=== PATIENT | female | born 1955 | race Caucasian/White ===

== ENCOUNTER → 2022-07-28 10:27 | Outpatient (BNVA) | payer MEDICARE, SELFPAY | PROVIDERS: PCP Internal Medicine; Visit Provider Nurse Practitioner Family ==

== ENCOUNTER 2022-07-28 10:54 | Observation (INO) | payer MEDICARE, OTHER, SELFPAY ==
[2022-07-28] VITALS (10 sets, daily range): BP systolic 105–172; BP diastolic 49–98; PULSE 61–105; RESP 16–22; TEMP 36.6–36.9; O2SAT 92–96; BMI 19.4
--- NOTE | ~2022-07-28 | XR_ITS ---
EXAMINATION: XR CHEST CLINICAL INFORMATION: Hypoxia. COMPARISON: None available. TECHNIQUE: 2 views of the chest were obtained. FINDINGS: Mild streaky opacities in the lower lungs. No significant pleural effusion or pneumothorax. Normal appearance of the cardiomediastinal silhouette. No acute osseous abnormalities. Thoracic spondylosis. XR/XR chest 2V IMPRESSION: Mild streaky opacities in the lower lungs favoring to represent subsegmental atelectasis.
--- NOTE | ~2022-07-28 | CT_ITS ---
EXAMINATION: CTA OF THE HEAD AND NECK CLINICAL INFORMATION: Question prior aneurysm or vascular malformation causing nosebleeds. COMPARISON: None available. TECHNIQUE: Test bolus sequences followed by intravenous administration 70 mL of Omnipaque 350. Helical imaging was performed in the axial plane from the mediastinum to the skull vertex. Delayed postcontrast imaging of the head was also performed. The data was processed at the communications technologist's workstation for generation of MIP sequences. Three-dimensional volume rendered reformatted images were also generated at an offline 3-D workstation. Stenoses are assessed in accordance with NASCET criteria unless otherwise indicated. Limited study with motion artifacts. This CT examination was performed using dose optimization techniques as appropriate, variously including the following: *Automated exposure control *Adjustment of mA and/or kV according to patient size (this includes techniques or standardized protocols for targeted exams where dose is matched to indication/reason for exam; i.e. extremities or head) *Use of iterative reconstruction technique DLP: 3115 mGy-cm FINDINGS: CT HEAD: There is no evidence of acute intracranial hemorrhage or territorial infarction. There is no loss of myers to white matter differentiation. No abnormal mass effect or midline shift is seen. No extra-axial fluid collections are identified. Moderate diffuse parenchymal volume loss and extensive chronic white matter microangiopathic changes are noted. There is ex vacuo prominence of the ventricles as well, slightly dilated to a greater degree compared to the sulcal spaces. However, the temporal horns of the lateral ventricles are not disproportionately dilated. No abnormal parenchymal or leptomeningeal enhancement is visible. The osseous structures and soft tissues are normal. The mastoid air cells are well aerated. There is intermediate attenuation soft tissue dependent portion of the left maxillary sinus which may reflect mucosal thickening and/or blood products, given patient history of epistaxis. CTA NECK: The imaged aortic arch and origins of the great vessels are patent with mild atherosclerotic wall calcifications. There are mild atherosclerotic wall calcifications at the right carotid bifurcation and origin of the right internal carotid artery with minimal luminal narrowing. The remainder of the right cervical ICA is normal in caliber. There is mild atheromatous disease along the porras of the left common carotid artery, though without significant luminal narrowing. At the left carotid bifurcation, atherosclerotic disease results in very mild narrowing of the distal common carotid artery; however, the left internal carotid artery origin is patent. There are mild wall calcifications in the proximal cervical left ICA without stenosis. The vertebral arteries opacify normally and are of normal caliber. Although limited for evaluation with motion artifacts, no obvious aneurysm is seen arising from the internal maxillary artery branch of the left external carotid artery. The remainder of the ECA vasculature bilaterally is grossly normal; no vascular malformation is visible. There is an indeterminate homogeneous, mildly hyperdense soft tissue abnormality in the right gingivobuccal sulcus measuring 2 x 1.3 x 1 cm in size. It is indeterminate as to whether higher attenuation of the soft tissue abnormality is due to enhancement. There is a significant reversal of the normal cervical lordosis with multilevel degenerative disc disease and facet arthropathy. Mild anterolisthesis noted at the C4-C5 level. The imaged portions of the lungs are clear with extensive emphysematous changes. There is a 0.3 cm nodule laterally in the left upper lobe. Linear scarring also visible anteriorly in the upper lobes bilaterally. CTA HEAD: There is a 1 x 0.7 cm lobulated aneurysm arising from the right PICA branch. The intradural vertebral arteries and basilar artery are normal in caliber. The posterior cerebral arteries are widely patent. The internal carotid arteries are of normal caliber. The ANISHA and MCA vascular complexes bilaterally are normal. The venous sinuses opacify normally. 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 Recommend follow-up neurosurgical versus neurointerventional radiology consultation to guide further management. No acute intracranial hemorrhage. Moderate diffuse parenchymal volume loss and extensive chronic white matter microangiopathy. No acute territorial infarction. Indeterminate 2 x 1.3 cm homogeneously hyperdense soft tissue abnormality in the right gingivobuccal sulcus which is indeterminate. Recommend correlation with direct visual inspection to exclude a mucosal lesion. Scattered mild atherosclerotic disease in the cervical and intracranial vasculature without significant stenosis or vessel occlusion. No obvious vascular malformation or aneurysm of the left external carotid artery, though assessment is limited due to patient motion artifacts. Intermediate soft tissue attenuation in the dependent portion of the left maxillary sinus which represent a combination of mucosal thickening and blood products, given patient's reported history of left-sided epistaxis. Recommend ENT follow-up evaluation to guide further management. Severe emphysema. Incidental 0.3 cm nodule in the left upper lobe. Per the 2017 revised Fleischner Society guidelines, no routine follow-up is necessarily required in low-risk patients, and consideration of 12 month follow-up CT is recommended for patients at high-risk for the development of pulmonary neoplasm. Imaging findings reported to Dr. Khan at 2:40 PM on 07/28/2022.
--- NOTE | 2022-07-28 11:01 | ED.GENADULT ---
HPI - General Adult General Chief complaint: General Medical Stated complaint: Low O2 Time Seen by Provider: 07/28/22 11:47 Source: patient and family Mode of arrival: ambulatory Limitations: no limitations History of Present Illness HPI narrative: 67 yo female hx of COPD still smokes 2 packs a day but not on home O2, HTN, prior intracererbral artery aneurysm that her and states started with brisk nose bleed was seen at [facility] on 07/22 for nose bleed but no bleeding in department at that time hemoglobin was 14, CXR showed RML pneumonia - looks like she left AMA due to hypoxia in the 80s not on home O2 and the patient was sent home on zpak and prednisone. she comes back as she notes she is coughing and has blood with the cough but then it causes a brisk bleed out of the L nares. She is not on thinners or aspirin. she states [facility] did nothing for me she states her prior aneurysm started this way last time. MD complaint: coughing blood and nose bleed Onset (ago): week(s) (1) Radiation: non-radiation Severity: moderate Relieving factors: none Exacerbating factors: other (coughing) Associated symptoms: cough and shortness of breath Treatments prior to arrival: other (steroids and antibiotics ) Related Data Allergies Allergy/AdvReac Type Severity Reaction Status Date / Time No Known Allergies Allergy Verified 07/28/22 11:05 Review of Systems Review of Systems: Constitutional : No Fever, No Chills, No Fatigue ENT/Mouth : No sore throat, No Rhinorrhea, pos nose bleed Eyes: No Eye Pain, No Swelling, No Redness Cardiovascular : No Chest Pain, pos SOB, No Dyspnea on Exertion Respiratory : pos Cough, No Sputum Gastrointestinal : No Nausea, No Vomiting, No Diarrhea, No abdominal Pain Genitourinary : No Dysuria, No Urinary Frequency, No Hematuria, Musculoskeletal : No joint pain, No Myalgias, No Joint Swelling Skin : No Skin Lesions, No rash Neuro : No Weakness, No Numbness, No Dizziness, no Headache Psych : pos Anxiety/Panic, No Depression Heme/Lymph: No Bruising, No Bleeding,No Lymphadenopathy Endocrine : No Polyuria, No Polydipsia All other systems reviewed and are negative PMFSH Past Medical History Attestation statement: The following information was validated with the patient. Medical History Aneurysm COPD (chronic obstructive pulmonary disease) HTN (hypertension) Social History Social History (Updated 07/28/22 @ 12:29 by Tabby Khan DO) Patient Tobacco Use Status: Current everyday Tobacco user Advance Directives: No Advance Directives Information Provided: Yes Physical Exam ED Vital Signs: Vital Signs - 24 hr 07/28/22 10:56 07/28/22 12:27 07/28/22 15:10 Temperature 97.8 F 98.2 F Pulse Rate 94 105 H 80 Respiratory Rate 20 20 16 Blood Pressure 158/54 H 105/55 L Pulse Oximetry 93 96 Oxygen Delivery Method Nasal Cannula Nasal Cannula Oxygen Flow Rate 2 07/28/22 16:09 Temperature 98.4 F Pulse Rate 100 Respiratory Rate 22 H Blood Pressure 156/98 H Pulse Oximetry 92 Oxygen Delivery Method Nasal Cannula Oxygen Flow Rate 2 BMI result Body Mass Index 19.4 Appearance: Alert. Oriented X3. No acute distress. Eyes: Pupils equal, round and reactive to light. ENT: Pharynx normal. L nares dried blood no active bleeding with cough no brisk bleeding happens Neck: Normal inspection. Neck supple. CVS: Normal heart rate and rhythm. Pulses normal. Respiratory: No respiratory distress. Breath sounds diminished Abdomen: Soft and non-tender. Skin: Skin warm and dry. pale skin color. Normal skin turgor. Extremities: No lower extremity edema. Neuro: Oriented X 3. No motor deficit. No sensory deficit. Course Course Course Narrative: RME - 67 yo female with history of COPD (not on O2), active smoker, hx ovarian cancer, hx brain aneurysm, HTN who presents to the ER from the Pulmonary office for evaluation of low oxygen levels. They were being seen there for possibility of home O2 initiation. She recently has had several nose bleeds, seen at [facility]x. Had low O2 levels there too and refused admission. Not on anticoagulation. Last nose bleed 15 mins ago and stopped with direct pressure. Placed on 2L (via mouth) and sent to the ER. SpO2 93%. No epistaxis at this time. Plan: CXR, labs, coags. will need to get [facility] records if able no active bleeding on CTA, incidental aneurysm, no persistent bleeding no new mass on CXR, H/H has trended down will need observation likely bleeding at home. denies GIB symptoms. type and screen ordered. no active bleeding at all I do not think she needs to be packed but CBC dropped again offered admit for trending. she agrees. at this time will transfuse one unit and reassess if she bleeds will pack. signed out to Dr. Verdugo. 17:10: patient has been in the emergency room for almost 6 hours, patient has not had any episodes of epistaxis. - Patient agreeable to blood transfusion - patient breathing comfortably, saturating 92% on 2 L of nasal cannula. Patient agreeable to stay for observation. - Patient has been discussed with Dr. Stone Medications Administered Discontinued Medications Generic Name Dose Route Start Last Admin Trade Name Freq PRN Reason Stop Dose Admin Iohexol 70 ml 07/28/22 13:58 07/28/22 13:58 Iohexol 350 Mg/Ml 75 Ml Infus..Btl IV 07/28/22 13:59 70 ml ONCE ONE Administration Oxymetazoline HCl 2 spray 07/28/22 12:01 07/28/22 12:16 Oxymetazoline Hcl 0.05 % Nasal 15 Ml [place] NOSTRIL-B 07/28/22 12:02 2 spray ONCE ONE Administration Tranexamic Acid 500 mg 07/28/22 12:01 07/28/22 12:24 Tranexamic Acid 1,000 Mg/10 Ml Vial INHALE 07/28/22 12:02 500 mg ONCE ONE Administration Medical Decision Making Medical Decision Making MDM Narrative: 67 yo female hx of COPD still smokes 2 packs a day but not on home O2, HTN, prior intracererbral artery aneurysm that her and states started with brisk nose bleed was seen at [facility] on 07/22 for nose bleed - left AMA with pneumonia, hypoxia sent home on steroids and antibiotics she comes back with nose bleeds that has stopped and coughing blood - I have ordered repeat labs, CXR for pneumonia - has no CP to suggest PE ddimer was negative at [facility] per records. I have ordered CTA for possible AVM. Knows she will need packing for bleed if it recurrs - not on thinners. slow trend down in H/H no known CAD will hold off transfusion Differential Diagnosis Differential Diagnoses: The differential diagnosis associated with the presentation includes mass, pneumonia, AVM, posterior nose bleed, anemia, bronchitis Admission/Observation Consideration of admission/observation: Escalation of care including admission/observation considered Consult Healthcare Provider Management of the patient was discussed with: Hospitalist Lab Data MDM Lab Attestation statement: I reviewed the patient's lab results. 07/28/22 11:11 07/28/22 11:11 Labs: Lab Results 07/28/22 07/28/22 07/28/22 Range/Units 11:11 11:11 11:11 WBC 7.2 (4.8-10.8) X10*3/uL RBC 2.89 L (4.20-5.50) X10*6/uL Hgb 9.2 L (12.0-16.0) g/dl Hct 29.1 L (37.0-47.0) % MCV 100.7 H (80.0-98.0) fL MCH 31.8 (27.0-33.0) pg MCHC 31.6 (31.0-35.0) g/dl RDW 14.8 (11.0-16.0) % Plt Count 208 (160-400) X10*3/uL MPV 12.5 H (9.4-12.3) fL Immature Gran % (Auto) 0.1 (0.0-0.4) % Neut % (Auto) 81.7 H (45-73) % Lymph % (Auto) 9.1 L (20-40) % Campbell % (Auto) 7.9 (2-11) % Eos % (Auto) 0.8 (0-4) % Baso % (Auto) 0.4 (0-2) % Lymph # (Auto) 0.7 L (1.2-4.9) X10*3/uL Campbell # (Auto) 0.6 (0.1-1.2) X10*3/uL Eos # (Auto) 0.1 (0.0-0.4) X10*3/uL Baso # (Auto) 0.0 (0.0-0.2) X10*3/uL Abs Immat Gran (auto) 0.01 (0.00-0.03) X10*3/uL Absolute Neuts (auto) 5.9 (2.0-8.3) x10*3/uL Absolute Nucleated RBC 0.000 (0.0-0.012) X10*3/uL Nucleated RBC % (auto) 0.0 (0.0-0.2) /100WBC PT 12.8 (10.0-13.1) SEC INR 1.1 (0.9-1.1) APTT 30.2 (26.0-36.4) SEC Sodium 144 (135-145) mmol/L Potassium 4.2 (3.3-5.1) mmol/L Chloride 108 (96-108) mmol/L Carbon Dioxide 31 H (22-29) mmol/L Anion Gap 9 L (12-20) BUN 13 (9-16) mg/dL Creatinine 0.76 (0.5-1.4) mg/dL Estim Creat Clear Calc 56.5 Estimated GFR > 60 Random Glucose 159 H (60-115) mg/dL Calcium 8.6 (8.4-10.2) mg/dL Magnesium 2.1 (1.6-2.6) mg/dL Total Bilirubin 0.4 (0.0-1.0) mg/dL Direct Bilirubin 0.1 (0.0-0.5) mg/dL AST 10 (5-31) U/L ALT 7 (0-31) U/L Alkaline Phosphatase 85 (39-117) U/L B-Natriuretic Peptide (<100) pg/mL Total Protein 6.1 L (6.5-8.0) g/dL Albumin 3.8 (3.5-5.0) g/dL Blood Type Antibody Screen Crossmatch 07/28/22 07/28/22 07/28/22 Range/Units 11:11 14:39 15:35 WBC 6.6 (4.8-10.8) X10*3/uL RBC 2.70 L (4.20-5.50) X10*6/uL Hgb 8.5 L (12.0-16.0) g/dl Hct 27.2 L (37.0-47.0) % MCV 100.7 H (80.0-98.0) fL MCH 31.5 (27.0-33.0) pg MCHC 31.3 (31.0-35.0) g/dl RDW 15.0 (11.0-16.0) % Plt Count 212 (160-400) X10*3/uL MPV 12.8 H (9.4-12.3) fL Immature Gran % (Auto) (0.0-0.4) % Neut % (Auto) (45-73) % Lymph % (Auto) (20-40) % Campbell % (Auto) (2-11) % Eos % (Auto) (0-4) % Baso % (Auto) (0-2) % Lymph # (Auto) (1.2-4.9) X10*3/uL Campbell # (Auto) (0.1-1.2) X10*3/uL Eos # (Auto) (0.0-0.4) X10*3/uL Baso # (Auto) (0.0-0.2) X10*3/uL Abs Immat Gran (auto) (0.00-0.03) X10*3/uL Absolute Neuts (auto) (2.0-8.3) x10*3/uL Absolute Nucleated RBC 0.000 (0.0-0.012) X10*3/uL Nucleated RBC % (auto) 0.0 (0.0-0.2) /100WBC PT (10.0-13.1) SEC INR (0.9-1.1) APTT (26.0-36.4) SEC Sodium (135-145) mmol/L Potassium (3.3-5.1) mmol/L Chloride (96-108) mmol/L Carbon Dioxide (22-29) mmol/L Anion Gap (12-20) BUN (9-16) mg/dL Creatinine (0.5-1.4) mg/dL Estim Creat Clear Calc Estimated GFR Random Glucose (60-115) mg/dL Calcium (8.4-10.2) mg/dL Magnesium (1.6-2.6) mg/dL Total Bilirubin (0.0-1.0) mg/dL Direct Bilirubin (0.0-0.5) mg/dL AST (5-31) U/L ALT (0-31) U/L Alkaline Phosphatase (39-117) U/L B-Natriuretic Peptide 22 (<100) pg/mL Total Protein (6.5-8.0) g/dL Albumin (3.5-5.0) g/dL Blood Type O Positive Antibody Screen NEGATIVE Crossmatch See Detail Independent Interpretation I performed an independent interpretation of an: EKG and Plain X-Ray Interpretation: Rate: 84 Rhythm: NSR Clayton: normal LVH Normal P waves. Normal BETY. Normal QRS complex. ST T wave : artifact but no CLAY inverted aVL qTC: normal prior studies: no acute ischemia The study has been interpreted contemporaneously by me. . Critical Care Time Critical Care Time Critical Care Time: Yes Total Critical Care Time: 60 Attestation: I have personally provided critical care time. Time includes review of lab data, radiology results, discussion with consultants, and monitoring for potential decompensation. Intervention performed as documented. Discharge Plan Discharge Clinical Impression: Acute blood loss anemia, Epistaxis Patient Disposition: Admitted As Inpatient Additional Instructions: you have an incidental finding of an aneurysm on your R PICA 1cm this needs to be looked at by a neurosurgeon please call your provider at [facility].
[2022-07-28 11:14] LABS: MANUAL DIFF FLAG NO
[2022-07-28 11:17] LABS: Basophils Percent Auto 0.4 % (0-2); Eosinophils Absolute Auto 0.1 X10*3/uL (0.0-0.4); Eosinophils Percent Auto 0.8 % (0-4); Hematocrit 29.1 % (37.0-47.0); Hemoglobin 9.2 g/dl (12.0-16.0); Imm Gran Abs Auto 0.01 X10*3/uL (0.00-0.03); Imm Gran Pct Auto 0.1 % (0.0-0.4); Lymphocytes Absolute Auto 0.7 X10*3/uL (1.2-4.9); Lymphocytes Percent Auto 9.1 % (20-40); Mean Corpuscular HGB Conc 31.6 g/dl (31.0-35.0); Mean Corpuscular Hemoglobin 31.8 pg (27.0-33.0); Mean Corpuscular Volume 100.7 fL (80.0-98.0); Mean Platelet Volume 12.5 fL (9.4-12.3); Monocytes Absolute Auto 0.6 X10*3/uL (0.1-1.2); Monocytes Percent Auto 7.9 % (2-11); Neutrophils Absolute Auto 5.9 x10*3/uL (2.0-8.3); Neutrophils Percent Auto 81.7 % (45-73); Platelet Count 208 X10*3/uL (160-400); Red Blood Count 2.89 X10*6/uL (4.20-5.50); Red Cell Distribution Width 14.8 % (11.0-16.0); White Blood Count 7.2 X10*3/uL (4.8-10.8)
[2022-07-28 11:23] LABS: INTERNATIONAL NORM RATIO 1.1 (0.9-1.1); Prothrombin Time 12.8 SEC (10.0-13.1)
[2022-07-28 11:26] LABS: Partial Thromboplastin Time 30.2 SEC (26.0-36.4)
[2022-07-28 11:31] LABS: Alanine Aminotransferase 7 U/L (0-31); Albumin Level 3.8 g/dL (3.5-5.0); Alkaline Phosphatase 85 U/L (39-117); Anion Gap 9 (12-20); Aspartate Amino Transferase 10 U/L (5-31); Bilirubin Direct 0.1 mg/dL (0.0-0.5); Bilirubin Total 0.4 mg/dL (0.0-1.0); Blood Urea Nitrogen 13 mg/dL (9-16); Calcium 8.6 mg/dL (8.4-10.2); Carbon Dioxide 31 mmol/L (22-29); Chloride 108 mmol/L (96-108); Creatinine Clr Calc Pharmacy 56.5; Estimated Glomerular Filt Rate > 60; Glucose Random 159 mg/dL (60-115); Magnesium 2.1 mg/dL (1.6-2.6); Potassium 4.2 mmol/L (3.3-5.1); Sodium 144 mmol/L (135-145); Total Protein 6.1 g/dL (6.5-8.0)
--- NOTE | 2022-07-28 12:01 | ECG_ITS ---
Test Reason : sob Blood Pressure : / mmHG Vent. Rate : 084 BPM Atrial Rate : 084 BPM P-R Int : 120 ms QRS Dur : 100 ms QT Int : 396 ms P-R-T Axes : 080 035 089 degrees QTc Int : 467 ms Poor data quality Normal sinus rhythm Minimal voltage criteria for LVH, may be normal variant ( Kevin product ) Abnormal ECG No previous ECGs available Referred By: Tabby Khan Electronically Signed By:Nito Terrazas
[2022-07-28] MEDS: Oxymetazoline HCl 0.05 % Nasal 15 ML SPRAY 2 SPRAY NOSTRIL-B (12:16)
[2022-07-28 12:21] LABS: B Type Natriuretic Peptide 22 pg/mL (<100)
[2022-07-28] MEDS: Tranexamic Acid 1,000 MG/10 ML VIAL 500 MG INHALE (12:24)
[2022-07-28] MEDS: iohexoL 350 MG/ML 75 ML INFUS..BTL 70 ML IV (13:58)
[2022-07-28 15:50] LABS: Hematocrit 27.2 % (37.0-47.0); Hemoglobin 8.5 g/dl (12.0-16.0); Mean Corpuscular HGB Conc 31.3 g/dl (31.0-35.0); Mean Corpuscular Hemoglobin 31.5 pg (27.0-33.0); Mean Corpuscular Volume 100.7 fL (80.0-98.0); Mean Platelet Volume 12.8 fL (9.4-12.3); Platelet Count 212 X10*3/uL (160-400); White Blood Count 6.6 X10*3/uL (4.8-10.8)
--- NOTE | 2022-07-28 18:10 | PM.IMHP ---
History of Present Illness Date of Service: 07/28/22 Chief Complaint: Nose bleed 67-year-old female with history of COPD recently treated for exacerbation with steroid, doxy and Augmentin, hypertension who was seen in Pulmonary Clinic and sent to ED because low O2 sat but while in the ED reported she reported that she has been have frequent nosebleed last episode was over 6 hours ago and also reportedly she has been seen at [facility] 3 times for this. Her hemoglobin is 8.5, it was 12.3 on July 25 at [facility]. She is presently not experiencing any difficulty breathing Review of Systems Review of Systems: no sob nose bleed--no actively, all other system areviewed and negative Yes all other systems are reviewed and are negative [facility] Medical History Aneurysm COPD (chronic obstructive pulmonary disease) HTN (hypertension) Social History Patient Tobacco Use Status: Current everyday Tobacco user Advance Directives: No Advance Directives Information Provided: Yes Nutrition Risks: Poor intake 0-25% >4 days service: No Current occupational status: [employer] Allergies Allergy/AdvReac Type Severity Reaction Status Date / Time No Known Allergies Allergy Verified 07/28/22 11:05 Active Medications: Current Medications Pharmacy Consult (Consult Rx Perform Med Rec) 1 each MISCELLANE ONCE PRN PRN Reason: Consult order Home Medications Medication Instructions Recorded Confirmed Last Taken Type albuterol sulfate 90 mcg/actuation 2 puff inhalation Q4H PRN 07/28/22 07/28/22 Unknown History aerosol inhaler Shortness Of Breath Or Wheezing amlodipine 10 mg tablet 10 mg PO DAILY 07/28/22 07/28/22 07/27/22 10:00 History amoxicillin 875 mg-potassium 1 tab PO Q12H 07/28/22 07/28/22 07/27/22 History clavulanate 125 mg tablet azithromycin 250 mg tablet 250 mg PO DAILY 07/28/22 07/28/22 07/27/22 10:00 History carvedilol 12.5 mg tablet 12.5 mg PO BID 07/28/22 07/28/22 07/27/22 10:00 History famotidine 20 mg tablet 20 mg PO DAILY 0607/28/22 07/27/22 10:00 History oxybutynin chloride 10 mg 10 mg PO DAILY 07/28/22 07/28/22 07/27/22 10:00 History tablet,extended release 24 hr sertraline 100 mg tablet 100 mg PO DAILY 07/28/22 07/28/22 07/27/22 10:00 History valsartan 40 mg tablet 40 mg PO DAILY 07/28/22 07/28/22 07/27/22 10:00 History Physical Exam Vital Signs and Narrative: Vital Signs: Last Vital Signs Temp 98.2 F 07/28/22 17:37 Pulse 69 07/28/22 17:37 Resp 18 07/28/22 17:37 BP 172/67 H 07/28/22 17:37 Pulse Ox 92 07/28/22 16:09 O2 Del Method Nasal Cannula 07/28/22 16:09 O2 Flow Rate 2 07/28/22 16:09 Oxygen Flow Rate 2 07/28/22 10:56 BMI result Body Mass Index 19.4 Const: Other: General: AO X 3, no acute distress HEENT: no blood in nose Resp: CTA bilateral CVS: S1,S2,RRR GI: +BS, NT, no distention Skin: No rash Neuro: motor grossly intact Psych: appropriate affect Results Labs 07/28/22 15:35 07/28/22 11:11 Labs: Laboratory Results - last 24 hr 07/28/22 07/28/22 07/28/22 11:11 11:11 11:11 MCV 100.7 H MCH 31.8 MCHC 31.6 RDW 14.8 Plt Count 208 MPV 12.5 H Immature Gran % (Auto) 0.1 Neut % (Auto) 81.7 H Lymph % (Auto) 9.1 L [place] % (Auto) 7.9 Eos % (Auto) 0.8 Baso % (Auto) 0.4 Lymph # (Auto) 0.7 L [place] # (Auto) 0.6 Eos # (Auto) 0.1 Baso # (Auto) 0.0 Abs Immat Gran (auto) 0.01 Absolute Neuts (auto) 5.9 Absolute Nucleated RBC 0.000 Nucleated RBC % (auto) 0.0 PT 12.8 INR 1.1 APTT 30.2 Anion Gap 9 L Estim Creat Clear Calc 56.5 Estimated GFR > 60 Random Glucose 159 H Calcium 8.6 Magnesium 2.1 Total Bilirubin 0.4 Direct Bilirubin 0.1 AST 10 ALT 7 Alkaline Phosphatase 85 B-Natriuretic Peptide Total Protein 6.1 L Albumin 3.8 Blood Type Antibody Screen Crossmatch 07/28/22 07/28/22 07/28/22 11:11 14:39 15:35 MCV 100.7 H MCH 31.5 MCHC 31.3 RDW 15.0 Plt Count 212 MPV 12.8 H Immature Gran % (Auto) Neut % (Auto) Lymph % (Auto) [place] % (Auto) Eos % (Auto) Baso % (Auto) Lymph # (Auto) [place] # (Auto) Eos # (Auto) Baso # (Auto) Abs Immat Gran (auto) Absolute Neuts (auto) Absolute Nucleated RBC 0.000 Nucleated RBC % (auto) 0.0 PT INR APTT Anion Gap Estim Creat Clear Calc Estimated GFR Random Glucose Calcium Magnesium Total Bilirubin Direct Bilirubin AST ALT Alkaline Phosphatase B-Natriuretic Peptide 22 Total Protein Albumin Blood Type O Positive Antibody Screen NEGATIVE Crossmatch See Detail Imaging Radiologist's Impressions: Impressions Chest X-Ray 07/28/22 13:30 IMPRESSION: Mild streaky opacities in the lower lungs favoring to represent subsegmental atelectasis. Head/Neck CTA 07/28/22 14:18 IMPRESSION: Approximate 1 x 0.7 cm lobulated right PICA aneurysm. Recommend follow-up neurosurgical versus neurointerventional radiology consultation to guide further management. No acute intracranial hemorrhage. Moderate diffuse parenchymal volume loss and extensive chronic white matter microangiopathy. No acute territorial infarction. Indeterminate 2 x 1.3 cm homogeneously hyperdense soft tissue abnormality in the right gingivobuccal sulcus which is indeterminate. Recommend correlation with direct visual inspection to exclude a mucosal lesion. Scattered mild atherosclerotic disease in the cervical and intracranial vasculature without significant stenosis or vessel occlusion. No obvious vascular malformation or aneurysm of the left external carotid artery, though assessment is limited due to patient motion artifacts. Intermediate soft tissue attenuation in the dependent portion of the left maxillary sinus which represent a combination of mucosal thickening and blood products, given patient's reported history of left-sided epistaxis. Recommend ENT follow-up evaluation to guide further management. Severe emphysema. Incidental 0.3 cm nodule in the left upper lobe. Per the 2017 revised Fleischner Society guidelines, no routine follow-up is necessarily required in low-risk patients, and consideration of 12 month follow-up CT is recommended for patients at high-risk for the development of pulmonary neoplasm. Imaging findings reported to Dr. Khan at 2:40 PM on 07/28/2022. Assessment and Plan (1) Epistaxis: Status: Acute (2) Hypoxia: Status: Acute Plan #Epistaxis--recurent, etiology not clear she needs to be seen by an ENT doc on outpatient basis if bleed again will need nasal packing #Acute Blood loss anemia d/t above, monotor H/H, transfuse if Hgb < 7 #? Hypoxia, no distress, doesn't appear to be in acute exacerbation, probably needs home O2, will assess before discharege, PRN inhalers #Aneurysm on CT--should have outpatient follow up #Indeterminate 2 x 1.3 cm homogeneously hyperdense soft tissue abnormality in the right gingivobuccal sulcus which is indeterminate. Recommend correlation with direct visual inspection to exclude a mucosal lesion. Nothing seen, should see dentist on outptient basis observation till next day Time Spent With Patient Time: Total time managing care of this patient today ____ minutes. Quality Stroke Does the patient have a stroke diagnosis?: No VTE Prior VTE?: No VTE Risk Level:: Medical - low VTE Device Contraindication: Treatment Not Indicated VTE Drug Contraindication: Treatment Not Indicated
--- NOTE | 2022-07-28 18:45 | PHA.MEDREC ---
Pharmacy Consult ? Medication Reconciliation Pharmacy has completed the medication reconciliation. Patient brought in all meds and stated that the meds brought in were all they would take.
--- NOTE | 2022-07-28 19:57 | PC.NURSE ---
pt brought to ED overflow bed 2 from ED bed 1. pt wearing 2 L O2 nasal cannula for low o2 d/t anemia. pt has been having recurrence of nose bleeds causing her H&H to drop significantly. pt received 1 unit rbc's in ED. sitting upright in bed, vital signs updated and pt provided with box of tissues. pt offers no complaints at this time. call marin within reach. will CTM
--- NOTE | 2022-07-28 20:53 | MHC.CM.PN ---
JOSH 07/28. CM met with patient and . Assigned to observation. Awaiting room assignment. A&Ox4. Lives w . No DME/services. Pt heavy smoker-2 pkgs/day. States she quit today. Refuses a patch. Encouraged patient to consider patch, as it will help with her withdrawal from smoking. Received only 1 Pfizer vaccination. No HCP on file. HCP reviewed, completed and signed. Copies given. Uploaded into [facility]. HCP/ Toni Rosario ([phone] & Home [phone]). Per hospitalist, patient may need home oxygen at discharge. Patient states she has some oxygen tanks and an old concentrator from a neighbor. CM encourage patient to have her own oxygen, which respiratory will set up for her if needed, as they will provide her with tubing and refills. Pt and are concerned about finances, as insurance has a $290 copay and they also expect a bill, as the insurance does not cover all the costs of hospitalization. Given [employer] pamphlet and encouraged to call them for assistance with any bills. Contact card also given. D/C plan: home without services. May need home oxygen. Will need respiratory consult. to transport. CM will follow for discharge planning.
[2022-07-28] MEDS: 0.9 % Sodium Chloride Flush 3 ML SYRINGE IVFLUSH (23:39)
[2022-07-29 00:10] VITALS: BP 178/88; PULSE 69; RESP 16; TEMP 37; O2SAT 95
[2022-07-29 06:14] LABS: Hematocrit 31.9 % (37.0-47.0); Hemoglobin 10.1 g/dl (12.0-16.0); Mean Corpuscular HGB Conc 31.7 g/dl (31.0-35.0); Mean Corpuscular Hemoglobin 31.1 pg (27.0-33.0); Mean Corpuscular Volume 98.2 fL (80.0-98.0); Mean Platelet Volume 12.9 fL (9.4-12.3); Platelet Count 199 X10*3/uL (160-400); Red Blood Count 3.25 X10*6/uL (4.20-5.50); White Blood Count 5.3 X10*3/uL (4.8-10.8)
--- NOTE | 2022-07-29 06:22 | PC.NURSE ---
RAVELER AT PATIENT BEDSIDE APPROX., 0600 FOR AM LAB DRAW AND SHORTLY AFTER PATIENT CALLED OUT THAT SHE WAS BLEEDING. NOSE BLEED NOTED, BLOOD FLOW FROM LEFT NARE, ICE PACK TO POSTERIOR NECK, PRESSURE TO BRIDGE OF NOSE WHICH PATIENT DID NOT LIKE, THEN WICKED TOILET TISSUE TO INSERT VERY VERY SHORT DISTANCE TO LEFT NARE WITH GOOD EFFECT TO CONTROL BLEEDING. PATIENT WAS COMFORTED AND NOSEBLEED LASTED LESS THAN 8 MINUTES. ASSISTED TO CLEANSE FACE AND HANDS AND PT ABLE TO RELAX. WILL REAPPLY OXYGEN, PT WITH NO S/SX RESP DISTRESS. MONITORED CLOSELY
[2022-07-29 07:53] VITALS: BP 131/71; RESP 18; TEMP 36.6; O2SAT 95
[2022-07-29] MEDS: 0.9 % Sodium Chloride Flush 3 ML SYRINGE IVFLUSH (09:31)
[2022-07-29] MEDS: Sertraline HCL 100 MG TABLET PO (09:46)
[2022-07-29] MEDS: oxyBUTYnin chloride ER 5 MG TAB.ER.24 10 MG PO (09:46)
[2022-07-29] MEDS: amLODIPine Besylate 10 MG TABLET PO (09:47)
--- NOTE | 2022-07-29 11:06 | P.DS_ITS ---
DS: Providers Provider Date of Service: 07/29/22 Date of admission: 07/28/22 18:23 Primary care physician: Kam Leos MD DS: Diagnosis Discharge Diagnosis (1) Epistaxis: Status: Acute (2) Hypoxia: Status: Acute DS: Summary Hospital Course Hospital Course: Chief Complaint: Nose bleed 67-year-old female with history of COPD recently treated for exacerbation with steroid, doxy and Augmentin, hypertension who was seen in Pulmonary [facility] and sent to ED because? low O2 sat but while in the ED reported she reported? that she has been have frequent nosebleed last episode was over 6 hours ago and also reportedly she has been seen at [facility] 3 times for this. Her hemoglobin is 8.5, it was 12.3 on July 25 at [facility]. She is presently not experiencing any difficulty breathing Hospital course: #Epistaxis--recurent, etiology not clear, seen at [facility] multiple times, recommend outpatient ENT follow up to be arranged on outpatient basis #Acute Blood loss anemia d/t above, H/H is 12/22 up from 10/18 the prior day after 1 unit of RBC #? Hypoxia, no distress, doesn't appear to be in acute exacerbation, she was recently treated for exacerbation of copd. I think she needs home O2, respiratory attempted to asses her but was concer due to unsteady gait and therefore PT was asked to see her for further recommendation. 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 Recommend follow-up neurosurgical versus neurointerventional radiology consultation to guide further management.. She was seen by Neurology with recommendation of ?Caution is advised with use of a walker and avoidance of situations that could put her at risk for falling.? Control of vascular risk factors is recommended. #Indeterminate 2 x 1.3 cm homogeneously hyperdense soft tissue abnormality in the right gingivobuccal sulcus which is indeterminate. Recommend correlation with direct visual inspection to exclude a mucosal lesion.? Nothing seen, should see dentist on outptient basis Case management was working on patient being able to go to rehab, patient was concern about the nose bleed and thought she should be treated as in patient for any it, at the present patient has no active bleed, her nose has not been packed and advised outpatient follow, unless live threatening bleed. I Called [facility] for possible transfer and they declined and following this decided that she would take her to [facility] Emergency room and no longer interested in rehab and assumes full resposnsibility and what happens after they, I and the nurse attempted to convince them othwerwise but they declined to stay Time Spent with Patient Time attestation: Total time managing care of this patient today ____ minutes. Discharge coordination time: Greater than 30 minutes Quality: Safe Use of Opioids Does Pt have an Active Cancer Diagnosis on the Problem List?: No Quality: Stroke Does the patient have a stroke diagnosis?: No Physical Exam Vital Signs: Vital Signs: Last Vital Signs Temp 98 F 07/29/22 07:53 Pulse 69 07/29/22 00:10 Resp 18 07/29/22 07:53 BP 131/71 07/29/22 07:53 Pulse Ox 95 07/29/22 07:53 O2 Del Method Nasal Cannula 07/29/22 07:53 O2 Flow Rate 2 07/29/22 07:53 Oxygen Flow Rate 2 07/28/22 10:56 BMI result Body Mass Index 19.4 Const: Other: General: AO X 3, no acute distress Resp: CTA bilateral CVS: S1,S2,RRR GI: +BS, NT, no distention Skin: No rash Neuro: motor grossly intact Psych: appropriate affect DS: Data Data Completed and Pending Labs on day of discharge: Laboratory Results - last 24 hr 07/28/22 07/28/22 07/28/22 11:11 11:11 11:11 WBC 7.2 RBC 2.89 L Hgb 9.2 L Hct 29.1 L MCV 100.7 H MCH 31.8 MCHC 31.6 RDW 14.8 Plt Count 208 MPV 12.5 H Immature Gran % (Auto) 0.1 Neut % (Auto) 81.7 H Lymph % (Auto) 9.1 L [place] % (Auto) 7.9 Eos % (Auto) 0.8 Baso % (Auto) 0.4 Lymph # (Auto) 0.7 L [place] # (Auto) 0.6 Eos # (Auto) 0.1 Baso # (Auto) 0.0 Abs Immat Gran (auto) 0.01 Absolute Neuts (auto) 5.9 Absolute Nucleated RBC 0.000 Nucleated RBC % (auto) 0.0 PT 12.8 INR 1.1 APTT 30.2 Sodium 144 Potassium 4.2 Chloride 108 Carbon Dioxide 31 H Anion Gap 9 L BUN 13 Creatinine 0.76 Estim Creat Clear Calc 56.5 Estimated GFR > 60 Random Glucose 159 H Calcium 8.6 Magnesium 2.1 Total Bilirubin 0.4 Direct Bilirubin 0.1 AST 10 ALT 7 Alkaline Phosphatase 85 B-Natriuretic Peptide Total Protein 6.1 L Albumin 3.8 Blood Type Antibody Screen Crossmatch 07/28/22 07/28/22 07/28/22 11:11 14:39 15:35 WBC 6.6 RBC 2.70 L Hgb 8.5 L Hct 27.2 L MCV 100.7 H MCH 31.5 MCHC 31.3 RDW 15.0 Plt Count 212 MPV 12.8 H Immature Gran % (Auto) Neut % (Auto) Lymph % (Auto) [place] % (Auto) Eos % (Auto) Baso % (Auto) Lymph # (Auto) [place] # (Auto) Eos # (Auto) Baso # (Auto) Abs Immat Gran (auto) Absolute Neuts (auto) Absolute Nucleated RBC 0.000 Nucleated RBC % (auto) 0.0 PT INR APTT Sodium Potassium Chloride Carbon Dioxide Anion Gap BUN Creatinine Estim Creat Clear Calc Estimated GFR Random Glucose Calcium Magnesium Total Bilirubin Direct Bilirubin AST ALT Alkaline Phosphatase B-Natriuretic Peptide 22 Total Protein Albumin Blood Type O Positive Antibody Screen NEGATIVE Crossmatch See Detail 07/29/22 05:51 WBC 5.3 RBC 3.25 L D Hgb 10.1 L Hct 31.9 L MCV 98.2 H MCH 31.1 MCHC 31.7 RDW 16.0 Plt Count 199 MPV 12.9 H Immature Gran % (Auto) Neut % (Auto) Lymph % (Auto) [place] % (Auto) Eos % (Auto) Baso % (Auto) Lymph # (Auto) [place] # (Auto) Eos # (Auto) Baso # (Auto) Abs Immat Gran (auto) Absolute Neuts (auto) Absolute Nucleated RBC 0.000 Nucleated RBC % (auto) 0.0 PT INR APTT Sodium Potassium Chloride Carbon Dioxide Anion Gap BUN Creatinine Estim Creat Clear Calc Estimated GFR Random Glucose Calcium Magnesium Total Bilirubin Direct Bilirubin AST ALT Alkaline Phosphatase B-Natriuretic Peptide Total Protein Albumin Blood Type Antibody Screen Crossmatch Discharge Plan Discharge Anticipated Discharge Date/Time: 07/29/22 11:02 Patient Disposition: Left Against Medical Advice Discharge Diagnosis: Nose bleed, hypoxia, Referrals: Kam Leos MD [Primary Care Provider] - 1 Week Discharge Medications: Continued carvedilol 12.5 mg tablet 12.5 mg PO BID oxybutynin chloride 10 mg tablet extended release 24hr 10 mg PO DAILY azithromycin 250 mg tablet 250 mg PO DAILY Rx Instructions: 07/23 - START; 07/28 - END sertraline 100 mg tablet 100 mg PO DAILY amlodipine 10 mg tablet 10 mg PO DAILY albuterol sulfate 90 mcg/actuation HFA aerosol inhaler 2 puff INHALATION Q4H PRN (Reason: Shortness Of Breath Or Wheezing) amoxicillin-pot clavulanate 875-125 mg tablet 1 tab PO Q12H Rx Instructions: 07/23 - START; 07/30 - END valsartan 40 mg tablet 40 mg PO DAILY famotidine 20 mg Tablet 20 mg PO DAILY Discharge Orders: Discharge Order (Routine); Ordered 07/29/22 Ordered By: Aristeo Stone Activity Restrictions/Additional Instructions: you have an incidental finding of an aneurysm on your R PICA 1cm this needs to be looked at by a neurosurgeon please call your provider at [facility]. Care Plan Goals: full work up for nose bleed, brain aneurysm and posible austen odontal issues, gait instabilit Health Concerns: Left AMA Plan of Treatment: Left AMA Assessment: as above
[2022-07-29 13:15] VITALS: BP 131/71; O2SAT 95
[2022-07-29 14:05] LABS: Folate 6.3 ng/mL (> or = 4.0); TSH reflex Free T4 0.58 uIU/mL (0.32-4.0); Vitamin B12 352 pg/mL (200-900)
[2022-07-29 14:17] VITALS: PULSE 65; PULSE 66; PULSE 68; O2SAT 87; O2SAT 89; O2SAT 93
[2022-07-29 14:54] VITALS: BP 160/53
--- NOTE | 2022-07-29 15:26 | MHC.CM.PN ---
Patient remains in ER overflow. Physical therapy eval completed. Short term rehab is being recommended. Met with patient and , Toni, in regards to discharge planning. Patient has never been to short term rehab but is agreeable. List of facilities contracted with patient's insurance provided from [employer]. Patient and Toni will go over the list and provide at least 2 facility choices to case management. Both made aware of bed shortage locally. Both aware insurance auth will need to be obtained when bed is found. It is anticipated patient will be here another night. Both verbalize understanding and agreement. Patient and Toni have questions about why patient is still having nosebleed. Both requesting to discuss plan of care with provider. Dr Stone made aware and asked to speak to patient and Toni. Continue to monitor for d/c needs.
--- NOTE | 2022-07-29 16:14 | P.CNNE_ITS ---
History of Present Illness Data of Consult Service Date: 07/29/22 Primary Care Provider: Kam Leos MD [facility] Reason for consult: Difficulty walking 67 years old woman I was asked to see for difficulty walking. She said that this was happening for few days but family stated this was probably happening before that. She also was having a nosebleed and when I saw her she was actively bleeding with gauze on her nose. She had imaging done that revealed some findings prompting this consultation. History taking and exam at this point was limited. Review of Systems Review of Systems: Recent unexplained nosebleeds PMFSH Past Medical History Medical History Aneurysm COPD (chronic obstructive pulmonary disease) HTN (hypertension) Social History Social History Patient Tobacco Use Status: Current everyday Tobacco user Advance Directives: No Advance Directives Information Provided: Yes Nutrition Risks: Poor intake 0-25% >4 days service: No Current occupational status: retired [employer] Allergies Allergy/AdvReac Type Severity Reaction Status Date / Time No Known Allergies Allergy Verified 07/28/22 11:05 Active Medications: Current Medications Acetaminophen (Acetaminophen Supp 650 Mg Supp.Rect) 650 mg [place] Q6H PRN PRN Reason: Pain, Mild (Pain Scale 1-3) Albuterol Sulfate (Albuterol Sulfate 90 Mcg 8 Gm Inhaler) 2 puff INHALE Q4H PRN PRN Reason: Shortness Of Breath Or Wheezing Albuterol/Ipratropium (Albuterol/Iprat 2.5/0.5mg 3 Ml Ampul.Neb) 3 ml INHALE RQ4H WHILE AWAKE PRN PRN Reason: shortnesss Amlodipine Besylate (Amlodipine Besylate 10 Mg Tablet) 10 mg PO DAILY [facility]; Protocol Last Admin: 07/29/22 09:47 Dose: 10 mg Carvedilol (Carvedilol 12.5 Mg Tablet) 12.5 mg PO BID FABIOLA; Protocol Famotidine (Famotidine 20 Mg Tablet) 20 mg PO DAILY FABIOLA Magnesium Hydroxide (Milk Of Magnesia 30 Ml Oral.Susp) 30 ml PO DAILY PRN PRN Reason: Constipation Melatonin (Melatonin 3 Mg Tablet) 6 mg PO BEDTIME PRN PRN Reason: Insomnia Ondansetron HCl (Ondansetron Hcl 4 Mg/2 Ml Vial) 4 mg IVPUSH Q8H PRN PRN Reason: Nausea and Vomiting Oxybutynin Chloride (Oxybutynin Chloride Er 5 Mg Tab.Er.24) 10 mg PO DAILY [facility] Last Admin: 07/29/22 09:46 Dose: 10 mg Pharmacy Consult (Consult Rx Perform Med Rec) 1 each MISCELLANE ONCE PRN PRN Reason: Consult order Sertraline HCl (Sertraline Hcl 100 Mg Tablet) 100 mg PO DAILY [facility] Last Admin: 07/29/22 09:46 Dose: 100 mg Sodium Chloride (0.9 % Sodium Chloride Flush 3 Ml Syringe) 3 ml IVFLUSH QSHIFT [facility] Last Admin: 07/29/22 09:31 Dose: 3 ml Valsartan (Valsartan 40 Mg Tablet) 40 mg PO DAILY [facility]; Protocol Last Admin: 07/29/22 11:11 Dose: Not Given Home Medications Medication Instructions Recorded Confirmed Last Taken Type albuterol sulfate 90 mcg/actuation 2 puff inhalation Q4H PRN 07/28/22 07/28/22 Unknown History aerosol inhaler Shortness Of Breath Or Wheezing amlodipine 10 mg tablet 10 mg PO DAILY 07/28/22 07/28/22 07/27/22 10:00 History amoxicillin 875 mg-potassium 1 tab PO Q12H 07/28/22 07/28/22 07/27/22 History clavulanate 125 mg tablet azithromycin 250 mg tablet 250 mg PO DAILY 07/28/22 07/28/22 07/27/22 10:00 History carvedilol 12.5 mg tablet 12.5 mg PO BID 07/28/22 07/28/22 07/27/22 10:00 History famotidine 20 mg tablet 20 mg PO DAILY 07/28/22 07/28/22 07/27/22 10:00 History oxybutynin chloride 10 mg 10 mg PO DAILY 07/28/22 07/28/22 07/27/22 10:00 History tablet,extended release 24 hr sertraline 100 mg tablet 100 mg PO DAILY 07/28/22 07/28/22 07/27/22 10:00 History valsartan 40 mg tablet 40 mg PO DAILY 07/28/22 07/28/22 07/27/22 10:00 History Physical Exam Vital Signs: Vital Signs: Last Vital Signs Temp 98 F 07/29/22 07:53 Pulse 69 07/29/22 00:10 Resp 18 07/29/22 07:53 BP 160/53 H 07/29/22 14:54 Pulse Ox 95 07/29/22 13:15 O2 Del Method Nasal Cannula 07/29/22 07:53 O2 Flow Rate 2 07/29/22 07:53 Oxygen Flow Rate 2 07/28/22 10:56 BMI result Body Mass Index 19.4 Neuro: Other: She is alert and awake with normal spontaneity of speech fluency comprehension and affect. Face is symmetrical. He is able to get up and walk in a cautious gait. Deep tendon reflexes are 1+. Face is symmetrical. Results Labs 07/29/22 05:51 07/28/22 11:11 Labs: Short CBC 07/29/22 Range/Units 05:51 WBC 5.3 (4.8-10.8) X10*3/uL Hgb 10.1 L (12.0-16.0) g/dl Hct 31.9 L (37.0-47.0) % Plt Count 199 (160-400) X10*3/uL CTA of brain and neck findings were reviewed. She has moderate to severe chronic microvascular ischemic changes moderately severe enlargement of ventricles and a PICA aneurysm. Also noted were findings in sinus area. Assessment and Plan (1) Cerebral aneurysm: Status: Acute This is of significant size but is asymptomatic and at this point she is having active epistaxis and possible soft tissue mass. An outpatient interventional radiology consultation is recommended. (2) Multifactorial gait disorder: Status: Acute 67 years old woman with extensive microvascular ischemic changes and moderate ventriculomegaly, both would impact her ability to balance and walk. Ventr iculomegaly is not severe enough to suggest normal pressure hydrocephalus. Most of the problem is likely due to vascular disease or ischemic disease. Caution is advised with use of a walker and avoidance of situations that could put her at risk for falling. Control of vascular risk factors is recommended. (3) Cerebral microvascular disease: Status: Acute (4) Cerebral ventriculomegaly: Status: Acute (5) Mass of soft tissue of face: Status: Acute Malignancy is a possibility and I recommended ENT evaluation, specially because of unexplained epistaxis. Time Spent With Patient Time: Total time managing care of this patient today ____ minutes. Procedures Date of Service Date of Service: 07/29/22
--- NOTE | 2022-07-29 16:36 | PC.NURSE ---
pt's insisted that Dr. Stone transfer pt to [facility] for nosebleed. Dr. Stone called [facility] to inquire if they will accept the pt. [facility] declined. Pt's got upset and stated I'm gonna pack her up and take her home since no one will do anything about her nose . Pt and her encouraged to follow up with ENT. Pt's stated I will just figure it out . Pt's put her in a wheelchair and left with her.
== END 2022-07-29 18:28 | disposition left against medical advice (07) ==
LOC: HO.ED 17:11 → HO.EDOVER 18:48
PROVIDERS: Emergency Medicine; Physician Assistant; Admitting Provider Internal Medicine; Emergency Provider Emergency Medicine; PCP Internal Medicine; Visit Provider Internal Medicine
DX: R04.0 Epistaxis (principal); R09.02 Hypoxemia; J44.9 Chronic obstructive pulmonary disease, unspecified; D62 Acute posthemorrhagic anemia; Z99.81 Dependence on supplemental oxygen; Z79.899 Other long term (current) drug therapy
CPT/HCPCS: 36415; 70496; 70498; 71046; 80048; 80076; 82607; 82746; 83735; 83880; 84443; 85025; 85027; 85610; 85730; 86850; 86900; 86901; 86923; 93005; 94640; 97162; 99221; 99285; P9016; Q9967

== ENCOUNTER → 2022-08-21 13:24 | Outpatient (BNVA) | payer MEDICARE, SELFPAY | PROVIDERS: PCP Internal Medicine; Visit Provider Nurse Practitioner Family | DX: R13.10 Dysphagia, unspecified (principal); J44.9 Chronic obstructive pulmonary disease, unspecified; R91.8 Other nonspecific abnormal finding of lung field; F17.210 Nicotine dependence, cigarettes, uncomplicated; Z99.81 Dependence on supplemental oxygen | CPT/HCPCS: 94618; 99212 ==

== ENCOUNTER 2023-02-09 13:22 | Outpatient (AMB) | payer MEDICARE, SELFPAY ==
--- NOTE | 2023-02-09 13:21 | MHC.OFFVIS ---
Intake Vital Signs 02/09/23 13:31 BP 164/78 H Blood Pressure Location Lt brachial Position Sitting Pulse 99 Pulse Source Pulse Oximeter Pulse Oximetry (%) 95 Oxygen Delivery Method Nasal Cannula Oxygen Flow Rate 3 Intake Visit Reasons: pulmonary nodules Retail Representative Required: No Allergies Penicillins Allergy (Severe, Verified 02/09/23 13:37) rash Medication List - Last Reconciled 02/09/23 by Beverley Paez LPN albuterol sulfate 90 mcg/actuation 2 puffs inhalation Q4H PRN amlodipine 10 mg PO DAILY amoxicillin-pot clavulanate 875-125 mg 1 tab PO Q12H carvedilol 12.5 mg PO BID famotidine 20 mg PO DAILY oxybutynin chloride ER 10 mg PO DAILY sertraline 100 mg PO DAILY umeclidinium-vilanterol 62.5-25 mcg/actuation 1 inh inhalation DAILY valsartan 40 mg PO DAILY HPI pulmonary nodules HPI Details Maria Luisa is a pleasant 67 year old female, current 1 ppd smoker with 100 pack year history, who is followed for COPD. She was referred by PCP for hypoxia as well as pulmonary nodules. At the last visit, she was placed on supplemental oxygen 2-3L and started on Anoro. She reports improvements in symptoms, however her states patient is still quite symptomatic. She recently was evaluated in the ED at [facility] and diagnosed with pneumonia. She had completed azithromycin course, however pharmacy was out of vantin until today. She reports nonproductive cough and dyspnea. Denies wheezing. She presents for a follow up today, as a home visiting nurse stated she has not been compliant with her inhaler and oxygen, finding her to be hypoxic, despite having supplemental oxygen in the home. Patient also continues to smoke 2 ppd and often is using her oxygen simultaneously. She also reports significant daytime fatigue and paroxysmal nocturnal dyspnea. PCP also sent for LDCT which revealed multiple 3-4 mm nodules on the left lower lobe. She was sent for a follow up chest CT in September but did not show and did not reschedule. She had reported intermittent difficulty swallowing and was sent for a barium swallow test but unfortunately did not show to her appointment. [facility] Medical History (Updated 02/10/23 @ 21:27 by Leigh Ann Edmonds NP) HTN (hypertension) Aneurysm COPD (chronic obstructive pulmonary disease) Social History (Updated 02/09/23 @ 13:41 by Beverley Paez LPN) Patient Tobacco Use Status: Current everyday Tobacco user Tobacco use type: Cigarette Cigarette Packs Per Day: 2 Cigarettes Per Day: 40 Years Smoked: 55 Smoked in Last 30 Days: Yes service: No Current occupational status: retired Review of Systems Const Denies chills, Denies excessive sweating, Denies fever(s), Denies headache(s) and Denies night sweats Eyes Denies dry eyes, Denies irritation and Denies itchy eyes ENT Reports Normal hearing present, Denies headache(s), Denies nasal congestion, Denies nasal discharge, Denies post nasal drip and Denies sore throat Card Denies chest pain, Denies chest pain at rest, Denies chest pain with activity, Denies claudication, Denies leg edema, Reports dyspnea on exertion, Denies orthopnea and Reports paroxysmal nocturnal dyspnea Resp Reports chest congestion, Reports cough, Denies hemoptysis, Denies excessive phlegm production, Denies pain on inspiration, Denies pain with cough, Reports dyspnea on exertion, Denies stridor and Denies wheezing Musc Denies myalgias Neuro Reports Normal hearing present and Denies headache(s) Endo Denies excessive sweating Dileep/Lymph Denies lymphadenopathy Aller/Immun Denies itchy eyes, Denies seasonal rhinorrhea and Denies wheezing Physical Exam Vital Signs: Last Vital Signs Pulse 99 02/09/23 13:31 BP 164/78 H 02/09/23 13:31 Pulse Ox 95 02/09/23 13:31 Oxygen Delivery Method Nasal Cannula 02/09/23 13:31 Oxygen Flow Rate 3 02/09/23 13:31 Const General: cooperative, comfortable, no acute distress, well developed and alert Nutritional Appearance: thin Orientation/consciousness: patient oriented x3 Limitations: wheelchair HEENT Head: Yes normal to inspection, Yes normocephalic and Yes atraumatic Ears: hearing grossly normal bilaterally and external ears normal Eyes General: appearance normal, both eyes and all related structures Eyelids: Yes eyelids normal Sclerae: sclerae normal EOM: EOMs intact bilaterally Neck Neck: Yes normal visual inspection and Yes no lymphadenopathy Lymphatic: no lymphadenopathy noted Chest Chest palpation & inspection: normal inspection of the chest Resp Effort & Inspection: normal respiratory effort, able to speak in complete sentences, no audible wheezes, Actively coughing (throughout visit) Quality: wet, no stridor, not tachypneic, no tripod positioning and no use of accessory muscles Auscultation: crackles bilateral at the base and no wheezes Cardio Jugular venous distension: no JVD Rate: regular rate Rhythm: regular rhythm Skin Other: warm, dry General skin exam: no rashes or lesions noted Neuro General: patient oriented x3 Cranial nerves: Yes Normal hearing present Cognition (Neuro): normal cognition Gait exam (Neuro): Normal gait present Extrem General: Yes normal to inspection, Yes capillary refill normal, Yes no clubbing, cyanosis or edema and Yes no pedal edema Psych Appearance: grossly normal Speech and movement: Normal speech and movement present and Clear speech present Affect: normal affect Attitude: cooperative Thought process: Normal thought process present Thought content: Normal thought content present Insight: Good insight present (Psych) Judgement: Good judgement present (Psych) Assessment & Plan Assessment & Plan (1) COPD (chronic obstructive pulmonary disease): Code(s): J44.9 - Chronic obstructive pulmonary disease, unspecified (2) Supplemental oxygen dependent: Code(s): Z99.81 - Dependence on supplemental oxygen (3) Dysphagia: Code(s): R13.10 - Dysphagia, unspecified (4) Multiple pulmonary nodules: Code(s): R91.8 - Other nonspecific abnormal finding of lung field (5) Paroxysmal nocturnal dyspnea: Code(s): R06.00 - Dyspnea, unspecified Plan Maria Luisa returns for follow up for underlying COPD. Unknown severity, previously discussed full PFT but patient declined and currently with pneumonia so will attempt spirometry at next visit. According to visiting nurse report, patient has not been using inhaler nor supplemental oxygen. Discussed importance of supplemental oxygen and adherence to inhaler. Reviewed adverse effects of hypoxia. Also emphasized importance and hazards related to smoking while using supplemental oxygen. Agreed to discontinue using supplemental oxygen prior to smoking. Smoking cessation reviewed. Again reviewed prior chest CT which revealed multiple pulmonary nodules 3-4 mm found in left upper and left lower lobe on LDCT, two are new from 2020. There is also a 7 mm nodule in the right lower lobe that has been stable since 2020. Discussed importance of obtaining repeat chest CT, as we need to assess for stability, explaining nodules have the potential to be a neoplastic process. At this time, patient declines rescheduling barium swallow. When reviewing prior labs, patient was anemic and reports recent labs from PCP. Will request. If unable to attain labs, will send for CBC to assess to anemia contributing to dyspnea. Patient also report PND and daytime fatigue. Will send for home sleep study on 2L supplemental oxygen. All questions were answered and patient is in agreement of plan. Will follow up to review chest CT results. Orders: Orders Complete Blood Count Auto Diff 02/09/23 D64.9 - Anemia, unspecified CT chest wo IV con Today R91.8 - Other nonspecific abnormal finding of lung field RT home sleep study Today R06.00 - Dyspnea, unspecified Medications: New Bevespi Aerosphere 9-4.8 mcg (glycopyrrolate-formoterol) 2 puffs inhalation BID 10.7 grams 3RF NS Coding Level of Care Code Est Pt Level 4 (71681) Diagnoses COPD (chronic obstructive pulmonary disease) J44.9 Supplemental oxygen dependent Z99.81 Dysphagia R13.10 Multiple pulmonary nodules R91.8 Paroxysmal nocturnal dyspnea R06.00
[2023-02-09 13:31] VITALS: BP 164/78; PULSE 99; O2SAT 95
== END 2023-02-09 14:24 | disposition home or self-care (01) ==
PROVIDERS: PCP Internal Medicine; Visit Provider Nurse Practitioner Family
DX: J44.9 Chronic obstructive pulmonary disease, unspecified (principal); Z99.81 Dependence on supplemental oxygen; R13.10 Dysphagia, unspecified; R91.8 Other nonspecific abnormal finding of lung field; R06.00 Dyspnea, unspecified
CPT/HCPCS: 99214

== ENCOUNTER → 2023-02-09 13:22 | Outpatient (BNVA) | payer MEDICARE, SELFPAY | PROVIDERS: PCP Internal Medicine; Visit Provider Nurse Practitioner Family | DX: J44.9 Chronic obstructive pulmonary disease, unspecified (principal); R13.10 Dysphagia, unspecified; R91.8 Other nonspecific abnormal finding of lung field; R06.00 Dyspnea, unspecified; Z99.81 Dependence on supplemental oxygen | CPT/HCPCS: 99212 ==